=== PATIENT | female | born 1950 | race Caucasian/White ===

== ENCOUNTER 2016-05-06 10:34 | Emergency (ER) | payer SELFPAY | END 2016-05-06 13:31 | disposition home or self-care (01) | LOC: ER 10:34 | DX: M54.9 Dorsalgia, unspecified (principal); D64.9 Anemia, unspecified; R21 Rash and other nonspecific skin eruption | CPT/HCPCS: 36415; 71010; 80053; 82550; 83735; 84484; 85007; 85027; 85610; 85730; 93005 ==